=== PATIENT | female | born 1970 | race Caucasian/White ===

== ENCOUNTER → 2017-09-05 | Day surgery (SDC) | payer BC, OTHER ==
[~2017-09-05] MED LIST: Propofol 200 MG/20 ML VIAL ONE
--- NOTE | 2017-09-05 20:25 | HP ---
DATE OF CONSULTATION: 09/05/2017 GASTROENTEROLOGY CONSULTATION CHIEF COMPLAINT: Swallowed a toothpick. HISTORY OF PRESENT ILLNESS: Ms. Kearney is a 47-year-old woman, who was at work today when she accidentally swallowed half of a toothpick. She has had a cold lately and she started coughing and swallowed half of a toothpick she felt that she had been chewing on. She is certain that she swallo wed the toothpick. Since then she feels a sensation in the right side of her neck as if there is so mething stuck there. She is unsure if there is actually still something stuck there as this was jus t a scratch as the toothpick went down. She has had no nausea or vomiting. No diarrhea, constipati on or blood in the stool. No abdominal pain. She did drink some water after having swallowed the t oothpick, which went on down without problems. She has had nothing to eat since then. She has had no other acute complaints. PAST MEDICAL HISTORY: Otherwise, negative. PAST SURGICAL HISTORY: She had a fallopian tube procedure, called assure. FAMILY HISTORY: Negative for GI malignancies. SOCIAL HISTORY: No alcohol, tobacco or drugs. ALLERGIES: No known drug allergies. CURRENT MEDICATIONS: None. REVIEW OF SYSTEMS: Negative x10 systems reviewed except as stated in the history of present illness . PHYSICAL EXAMINATION: VITAL SIGNS: Blood pressure 137/80, pulse 86, temperature 98.1. GENERAL: She is in no acute distress. She is alert and oriented x3. EYES: Eyes have no scleral icterus. OROPHARYNX: Clear, without lesions. NECK: There is no cervical or supraclavicular lymphadenopathy. She tolerates her secretions well. LUNGS: Clear to auscultation bilaterally. HEART: Regular rate and rhythm without murmur. ABDOMEN: Soft, nontender, nondistended. Bowel sounds are present. EXTREMITIES: No lower extremity edema. IMPRESSION: Possible esophageal foreign body. This could be above the level of the esophagus as we ll as she does have discomfort in the right side of the lower neck. I suspect she actually just scr atched her throat as she swallowed a toothpick and the toothpick most likely has passed on down. Sh danna is not having any pain, dysphagia or odynophagia. We will plan esophagogastroduodenoscopy to eval uate if we can remove the toothpick. If we are unable to reach the toothpick, then it might have to pass through. PLAN: EGD today.
--- NOTE | 2017-09-06 02:25 | OP ---
DATE OF PROCEDURE: 09/05/2017 PROCEDURE: Esophagogastroduodenoscopy. PREOPERATIVE DIAGNOSIS: Possible esophageal foreign body. She swallowed half of toothpick earlier today. OPERATIVE NOTE: Informed consent was obtained from the patient. She was sedated with total intrave nous anesthesia. The bite block was placed and the endoscope was advanced easily to the second port ion of the duodenum and retroflexion was performed in the stomach. No foreign body was identified i n the pharynx or larynx by the endoscope. Direct laryngoscopy by the Anesthesia Service did not pierre ntify a foreign body. The esophagus was normal. The GE junction was normal. The stomach was paulino l including retroflexed views. The pylorus and first and second portions of the duodenum were paulino l. IMPRESSION: 1. Normal esophagogastroduodenoscopy. 2. No foreign body was identified by esophagogastroduodenoscopy or direct laryngoscopy by the Anest hesia service. 3. She swallowed half of toothpick which is likely at this point, passed down to the small bowel or beyond. RECOMMENDATIONS: 1. Okay to discharge home this evening. 2. Follow up as needed.
== END ==
LOC: ERS 14:24 → SDC/OP 17:28
PROVIDERS: ATTEND Internal Medicine Gastroenterology
PROC: 0DJ08ZZ Inspection of Upper Intestinal Tract, Via Natural or Artificial Opening Endoscopic (ICD-10-PCS; principal; 2017-09-05)
DX: T18.198A Other foreign object in esophagus causing other injury, initial encounter (principal); Z98.890 Other specified postprocedural states
CPT/HCPCS: J2704